=== PATIENT | male | born 1995 | race Caucasian/White ===

== ENCOUNTER 2022-02-20 21:37 | Emergency (ER) | payer MEDICAID ==
[~2022-02-20] VITALS: Ht 193 cm; Wt 68.3 kg
[2022-02-20] MEDS ORDERED: ondansetron 4mg rapidly disintigrating tab PO ONE (23:05)
[2022-02-20] MEDS ORDERED: acetaminophen 325mg tablet PO ONE (23:05)
[2022-02-20] MEDS ORDERED: ketorolac trometh inj. 60 MG/2 ML VIAL IM ONE (23:05)
[2022-02-21 00:04] VITALS: BP 110/73
== END 2022-02-21 00:06 | disposition home or self-care (01) ==
LOC: ER 21:38
DX: S62.305A Unspecified fracture of fourth metacarpal bone, left hand, initial encounter for closed fracture (principal); S62.307A Unspecified fracture of fifth metacarpal bone, left hand, initial encounter for closed fracture; W22.01XA Walked into wall, initial encounter; Y93.89 Activity, other specified; Y92.89 Other specified places as the place of occurrence of the external cause; Y99.8 Other external cause status
CPT/HCPCS: 26600; 73130; 96372; 99284; J1885; 26410; 99283

== ENCOUNTER 2022-03-22 10:31 | Day surgery (SDC) | payer BC, MEDICAID ==
[~2022-03-22] VITALS: Ht 193 cm; Wt 66.9 kg
[2022-03-22] VITALS (8 sets, daily range): BP systolic 110–125; BP diastolic 65–78
[~2022-03-22 10:31] MED LIST: NO HOME MEDS; ceFAZolin inj. 2,000 MG in dextrose 5%-water 100 ML IV ONE; famotidine 20mg tablet PO ONE; ringers solution, lacted 1,000 ML IV SCH
[2022-03-22] MEDS ORDERED: bacitracin 15gm ointment TP ONE (13:02)
[2022-03-22] MEDS ORDERED: BUPIVAcaine/PF 2.5 mg/ml (0.25%) 30ml vial ONE (13:02)
[2022-03-22] MEDS ORDERED: morphine 4 MG/ML inj SYRINge IV PRN (13:35)
[2022-03-22] MEDS ORDERED: morphine 2 MG/ML inj. syringe IV PRN (13:35)
[2022-03-22] MEDS ORDERED: ringers solution, lacted 1,000 ML IV SCH (13:35)
[2022-03-22] MEDS ORDERED: ondansetron/PF 4mg/2ml inj IV PRN (13:35)
[2022-03-22] MEDS ORDERED: proCHLORperazine 10 MG/2 ml inj IV PRN (13:35)
[2022-03-22] MEDS ORDERED: meperidine/PF 25mg/ml syringe IV PRN ×3 (13:35)
[2022-03-22] MEDS ORDERED: fentaNYL/PF 50MCG/1 ML 2ML syringe ONE (14:35)
[2022-03-22] MEDS ORDERED: midazolam 1 mg/ML 2ml injection ONE (14:35)
[2022-03-22] MEDS ORDERED: ROPIVAcaine 0.5% (5mg/ml) 30ml vial ONE (14:36)
[2022-03-22] MEDS ORDERED: propofol inj 20 ML IV ONE (16:52)
--- NOTE | 2022-03-22 17:46 | NUR ---
DISCHARGE INSTRUCTIONS GIVEN, PT VERBALIZED UNDERSTANDING, IV D/AMARILYS PT TAKEN TO FRONT LOBBY VIA WHEELCHAIR, WHERE PTS MOTHER IS DRIVING PT HOME
== END 2022-03-22 17:46 | disposition home or self-care (01) ==
LOC: PAS 10:31
PROVIDERS: ATTEND Orthopaedic Surgery
DX: S62.395A Other fracture of fourth metacarpal bone, left hand, initial encounter for closed fracture (principal); S62.397A Other fracture of fifth metacarpal bone, left hand, initial encounter for closed fracture; F90.9 Attention-deficit hyperactivity disorder, unspecified type; X58.XXXA Exposure to other specified factors, initial encounter; Y93.89 Activity, other specified; Y92.89 Other specified places as the place of occurrence of the external cause; Y99.8 Other external cause status; G89.18 Other acute postprocedural pain; Z79.899 Other long term (current) drug therapy
CPT/HCPCS: 26615; 64417; 76942; 82948; A6222; C1713; J0690; J2250; J2704; J2795; J3010; J7030; J7060; J7120; Z7506; Z7508; Z7512; A4565; A4618; A6258; A6449; A7000; J3490